=== PATIENT | male | born 1940 | race Caucasian/White ===

== ENCOUNTER 2016-12-27 17:22 | Emergency (ER) | payer OTHER, MEDICARE ==
[~2016-12-27] VITALS: Ht 180.3 cm; Wt 76.9 kg
[2016-12-27 17:25] VITALS: Ht 180.3 cm; Wt 76.9 kg
--- NOTE | 2016-12-27 17:36 | NUR ---
CARE ASSUMED BY DIANE LOERA
--- NOTE | 2016-12-27 17:42 | ERPDOC ---
Departure Disposition Decision Date: December 27, 2016 Disposition Decision Time: 18:50 Disposition: 01 DISCHARGED HOME, SELF-CARE Impression Impression Impression: Primary Impression: Abrasion of right arm Encounter type: initial encounter Qualified Codes: S40.811A - Abrasion of right upper arm, initial encounter Additional Impression: Elevated INR Severity: Moderate Condition: Stable Seen By: Mid-level only Patient Instructions: Elevated INR (ED) Problems/Meds/Labs Reviewed?: Yes Medications reviewed and manag: Yes Additional Instructions: Do not take your Warfarin until you follow up in clinic with your primary care provider for recheck of your INR. Keep the abrasion clean and dry and covered. It may continue to bleed some but this should be less and should improve with decrease of your INR over the next 24 hours. If any further concerns then follow up with your primary care provider for reevaluation. Follow up care ordered?: Yes Mental Status: Alert, Oriented HPI - Fall/Injury General Chief Complaint: Fall Stated Complaint: SCRAPED ARM Time Seen by Provider: 17:32 Source: patient Exam Limitations: no limitations HPI - Fall/Injury Initial Comments He was unloading his stuff from the motel last night. His leg gave out and he hit his right arm on a car that was there. Has two skin tears on the right arm that have continued to bleed since last night. He does take Warfarin daily. His did not give him his Warfarin dose last evening. Unknown last tetanus vaccination. He does not have any other c/o or injury. Occurred At: home Onset: Rapid Severity: moderate Injuries/Pain Location: upper extremity (right elbow) Context: unknown Loss of Consciousness: no loss of consciousness Associated Symptoms: DENIES: abdominal pain, chest pain, confusion, dizziness, headache, lightheadedness, muscle spasms, nausea/vomiting, neck pain, ringing in ears, seizures, shortness of breath, slurred speech, trouble walking, vision changes Hx of Similar Symptoms: No Allergies: Coded Allergies: No Known Allergies (Unverified , 12/27/16) Review of Systems Constitutional Constitutional: DENIES: chills, dizziness, fatigue, fever, weakness Musculoskeletal General: DENIES: cramps, joint pain, joint swelling, pain, tenderness, weakness Integumentary Skin: other (to skin tears on the right elbow region), DENIES: rash Neurological General: DENIES: headache, numbness, tingling, weakness Physical Exam General General Nourishment: well nourished, well developed, appears stated age, no acute distress, adult General Body Habitus: well groomed Vitals and Pain First Documented Vital Signs Date Time Temp Pulse Resp B/P Pulse Ox O2 Delivery O2 Flow Rate FiO2 12/27/16 17:25 98.1 79 26 136/75 96 Room Air Weight: Kilograms: 76.900 Height (feet): 5 Height (inches): 11.00 Triage Pain Scale: RN VS reviewed by Provider: Yes Normal Exams: Neck: Full range of motion, without adenopathy, JVD, bruits or thyromegaly Chest/Resp: Clear all chandler, with good airflow, and symmetry bilaterally CV: Regular rate and rhythm, without murmur or gallop, Pulses 2+ all extremities, capillary refill, <2 seconds all ext., no pedal edema noted Abdomen: Bowel sounds positive, soft, non-tender, non-distended, no hepatosplenomegaly, masses or bruits noted Musculoskeletal: No tenderness, or deformity noted, good range of motion, all extremities Neurologic: Patient is alert, and oriented Psychiatric: Patient exhibits, appropriate attention, emotion and affect Integumentary (brief) Integumentary Brief: FOUND: other (He has two skin tears on the right proximal forearm. No active bleeding currently but there was dried blood on the gauze dressing. Full ROM of the right elbow was noted. ) Differential Diagnoses Considering: Abrasion, Contusion, Fracture Progress Results/Orders Orders Procedure Category Date Status Time INR LAB 12/27/16 Complete Tetanus,Diphth,A PHA 12/27/16 Complete Pertus (Tdap) (Adacel) 17:45 Phytonadione (Vitamin PHA 12/27/16 Complete K) 18:45 Lab Results Laboratory Tests Test 12/27/16 18:18 Prothromb Time International Ratio 6.05 Medications Current ED Medications Diphtheria/ Tetanus/Acell Pertussis (Adacel) 0.5 ml O ONCE IM Last administered on 12/27/16t 18:08; Start 12/27/16 at 17:45; Stop 12/27/16 at 17:46 ; Status DC Phytonadione (Vitamin K) 5 mg O ONCE PO ; Start 12/27/16 at 18:45; Stop at 18:46; Status DC Progress Progress INR is elevated at 6.05. Will go ahead and give him a dose of Vitamin K tonight. Did apply hemostat powder to the wound and covered with Telfa and Kerlix to see if this will help with the bleeding. Will have him hold the Warfarin until he can follow up with his PCP tomorrow or Wednesday. If any further concerns then return to Er. BRUCE KEITA APRN December 27, 2016 17:42
[2016-12-27] MEDS ORDERED: TETANUS,DIPHTH,a PERTUS (Tdap) 0.5 ML VIAL IM ONE (17:45)
[2016-12-27] MEDS ORDERED: GABA-305 PO (17:46)
[2016-12-27] MEDS ORDERED: WARF5TAB6 PO (17:46)
[2016-12-27] MEDS ORDERED: TAMS0.4C47 PO (17:46)
[2016-12-27] MEDS ORDERED: SODI325T PO (17:46)
[2016-12-27] MEDS ORDERED: CYAN10009 PO (17:50)
[2016-12-27] MEDS ORDERED: FERR325T40 PO (17:50)
[2016-12-27] MEDS ORDERED: ASPI-557 PO (17:50)
[2016-12-27] MEDS ORDERED: CHOL200014 PO (17:54)
[2016-12-27] MEDS ORDERED: TRAM50TA4 PO (17:54)
[2016-12-27] MEDS ORDERED: FURO40TA5 PO (17:54)
[2016-12-27] MEDS ORDERED: AMLO5TAB2 PO (17:54)
[2016-12-27 18:32] LABS: PROTHROMBIN TIME 65.9 SEC (9.31-12.49)
[2016-12-27 18:37] LABS: INR 6.05 (0.76-1.04)
[2016-12-27] MEDS ORDERED: PHYTONADIONE 5mg/2.5ml ORAL SOLUTION PO ONE (18:45)
[2016-12-27 19:25] VITALS: BP 136/75; PULSE 79; RESP 26; TEMP 98.1; O2SAT 96
== END 2016-12-27 19:25 | disposition home or self-care (01) ==
LOC: ED 17:22
DX: S51.811A Laceration without foreign body of right forearm, initial encounter (principal); Z79.01 Long term (current) use of anticoagulants; W22.09XA Striking against other stationary object, initial encounter; Y93.89 Activity, other specified; Y92.59 Other trade areas as the place of occurrence of the external cause; Y99.8 Other external cause status
CPT/HCPCS: 36415; 85610; 90715